=== PATIENT | female | born 1995 | race Caucasian/White ===

== ENCOUNTER 2025-08-25 08:46 | Emergency (ER) | payer BC, OTHER ==
[~2025-08-25] VITALS: Ht 170.2 cm; Wt 68.0 kg
[2025-08-25 08:55] VITALS: BP 107/72
[2025-08-25 09:32] LABS: PLATELET COUNT (AUTO) 293 K/uL (179-408); RED BLOOD CELL COUNT(AUTO) 4.49 MIL/uL (3.63-4.92); RED CELL DISTRIBUTION WIDTH 12.9 % (12.3-17.7); WHITE BLOOD COUNT (AUTO) 5.5 K/uL (3.8-11.8)
[2025-08-25 09:34] LABS: *BILIRUBIN,URIN NEGATIVE (NEGATIVE); *CLARITY,URINE CLEAR (CLEAR); *COLOR,URINE YELLOW (YELLOW); *KETONES,URINE NEGATIVE (NEGATIVE); *PROTEIN,URINE NEGATIVE (NEGATIVE); *UROBILINOGEN,URINE 0.2 E.U./dl (NORMAL); LEUKOCYTE ESTERASE ,URINE NEGATIVE (NEGATIVE); NITRITE, URINE NEGATIVE (NEGATIVE); UGLUCOSE NEGATIVE (NEGATIVE)
[2025-08-25 09:42] LABS: *BLOOD, URINE TRACE (NEGATIVE); SQUAMOUS EPITHELIAL CELL,UR NONE SEEN /HPF (NONE SEEN)
[2025-08-25 10:08] LABS: ASPARTATE AMINOTRANSFERASE 14.0 U/L (15-37); CREATININE 0.7 mg/dL (0.6-1.3); SODIUM SERUM 138.0 mmol/L (136-145); TOTAL PROTEIN, SERUM 7.6 g/dL (6.4-8.2); UREA NITROGEN, BLOOD 9.0 mg/dL (7-18)
[2025-08-25 10:17] LABS: PREGNANCY TEST SERUM QUAN 3.0 miul/L (0-6)
[2025-08-25 10:19] LABS: HIV-1/2 ANTIBODY NON REACTIVE (NONREACTIVE)
[2025-08-25 10:25] VITALS: BP 111/69; O2SAT 98
[2025-08-26 05:11] LABS: HEPATITIS B CORE AB, TOTAL Negative (Negative); HEPATITIS B SURFACE AB, QUAL Reactive (.); HEPATITIS C VIRUS ANTIBODY Non Reactive (Non Reactive)
== END 2025-08-25 10:25 | disposition home or self-care (01) ==
LOC: ER 08:46
DX: S61.032A Puncture wound without foreign body of left thumb without damage to nail, initial encounter (principal); N91.2 Amenorrhea, unspecified; Z77.21 Contact with and (suspected) exposure to potentially hazardous body fluids; W46.0XXA Contact with hypodermic needle, initial encounter; Y93.89 Activity, other specified; Y92.89 Other specified places as the place of occurrence of the external cause; Y99.9 Unspecified external cause status; R10.20 Pelvic and perineal pain unspecified side
CPT/HCPCS: 36415; 76856; 85025; 86704; 86706; 86803; 87806; A4606; A4663